=== PATIENT | male | born 1980 | race Caucasian/White ===

== ENCOUNTER 2019-10-05 19:13 | Inpatient (IN) | payer BC, OTHER ==
[~2019-10-05] VITALS: Ht 185.4 cm; Wt 95.9 kg
[2019-10-05] MEDS ORDERED: ALPR1TAB3 (19:50)
[2019-10-05] MEDS ORDERED: SERT50TA29 (19:50)
[2019-10-05 20:03] LABS: HEMATOCRIT 48.7 % (42.0-52.0); HEMOGLOBIN 16.7 g/dl (13.5-17.5); MEAN CORPUSCULAR HEMOGLOBIN 31.7 pg (27.0-33.0); MEAN CORPUSCULAR HGB CONC 34.3 g/dl (32.0-36.5); MEAN CORPUSCULAR VOLUME 92.6 fl (80.0-96.0); PLATELET COUNT, AUTOMATED 273 10^3/uL (150-450); RED BLOOD COUNT 5.26 10^6/uL (4.30-6.10); WHITE BLOOD COUNT 7.4 10^3/uL (4.0-10.0)
[2019-10-05 20:17] LABS: AMPHETAMINES LEVEL URINE NEGATIVE (NEGATIVE); BARBITURATES URINE NEGATIVE (NEGATIVE); BENZODIAZEPINES URINE POSITIVE (NEGATIVE); CANNABINOIDS URINE POSITIVE (NEGATIVE); COCAINE METABOLITE URINE NEGATIVE (NEGATIVE); METHADONE URINE NEGATIVE (NEGATIVE); OPIATES URINE NEGATIVE (NEGATIVE); PHENCYCLIDINE URINE NEGATIVE (NEGATIVE)
[2019-10-05 20:32] LABS: ACETAMINOPHEN LEVEL < 2.0 UG/ML (10.0-30.0); ALBUMIN 4.4 GM/DL (3.2-5.2); ALT/SGPT 36 U/L (12-78); BILIRUBIN,DIRECT 0.3 MG/DL (0.0-0.2); BILIRUBIN,TOTAL 1.1 MG/DL (0.2-1.0); BLOOD UREA NITROGEN 12 MG/DL (7-18); CALCIUM LEVEL 9.1 MG/DL (8.5-10.1); CARBON DIOXIDE LEVEL 23 MEQ/L (21-32); CHLORIDE LEVEL 105 MEQ/L (98-107); CREATININE FOR GFR 1.16 MG/DL (0.70-1.30); ETHYL ALCOHOL (ETHANOL) 0.125 % (0.000-0.010); GLOMERULAR FILTRATION RATE > 60.0 (>60); GLUCOSE, FASTING 88 MG/DL (70-100); POTASSIUM SERUM 3.6 MEQ/L (3.5-5.1); SALICYLATE LEVEL < 1.7 MG/DL (5.0-30.0); SODIUM LEVEL 138 MEQ/L (136-145); THYROID STIMULATING HORMONE 0.922 uIU/ML (0.358-3.740); TOTAL PROTEIN 8.1 GM/DL (6.4-8.2)
[2019-10-05] MEDS ORDERED: SERT50TA29 PO (22:42)
[2019-10-05] MEDS ORDERED: ALPR1TAB3 PO (22:42)
[2019-10-05] MEDS: THIAMINE 100 MG TAB PO SCH (23:29)
[2019-10-05] MEDS ORDERED: ALPRAZolam 0.5 MG TAB PO ONE (23:30)
[2019-10-05] MEDS ORDERED: ACETAMINOPHEN TAB 650MG DOSE (2X325MG) PO PRN (23:30)
[2019-10-05] MEDS ORDERED: OLANZapine 5 MG TAB PO PRN (23:30)
[2019-10-05] MEDS ORDERED: MOM 30ML SUSPENSION UDC PO PRN (23:30)
[2019-10-05] MEDS ORDERED: MAALOX 30 ML SUSP *UDC PO PRN (23:30)
[2019-10-05] MEDS ORDERED: LORazepam 2 MG TAB PO PRN (23:30)
[2019-10-05] MEDS ORDERED: traZODone 50 MG TAB PO PRN (23:30)
[2019-10-06 02:00] VITALS: BP 138/67
[2019-10-06] MEDS ORDERED: OLANZapine ORAL DISINTEGRATING TAB 5MG PO PRN (02:30)
[2019-10-06 06:55] VITALS: BP 138/67
[2019-10-06 07:48] VITALS: BP 162/93
[2019-10-06] MEDS ORDERED: FOLIC ACID 1 MG TAB PO SCH (09:00)
[2019-10-06] MEDS ORDERED: MULTIVITAMINS/MINERALS THERAP 1 TAB PO SCH (09:00)
[2019-10-06] MEDS: THIAMINE 100 MG TAB PO SCH (09:00)
--- NOTE | 2019-10-06 13:16 | MHDSPDOC ---
[facility] Discharge Summary Discharge Summary DATE OF ADMISSION: Oct 05, 2019 at 23:23 DATE OF DISCHARGE: DISCHARGE DIAGNOSES: 1. . 2. . REASON FOR ADMISSION: CONSULTANTS INVOLVED: TREATMENT AND PROGRESS ON THE UNIT : . 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 9 who was admitted on an involuntary basis last evening because of a concern by his family primarily that he was having self-destructive suicidal impulses Apparently Hadley had sent a text to his sister that was reviewed by his [id number] who is a state patrolman and was interpreted as to implicate suicidality so much so that his sister then called for a wellness check and the police were sent to the patient's home He is currently he has 2 children through a mail sons ages 11 and 9--- 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 and in fact is due to go to work tomorrow morning at 7:00 He is requesting discharge as soon as possible stating that this was a overreaction about the same time a stupid thing on his own part to have done--he regrets having that type of text He has no previous history of any psychiatric hospitalizations He currently takes Zoloft 50 mg per day does not really know whether or not it's helping him or not--he states that he said a couple of difficult things occur in his life over the last couple of weeks and that he was upset primarily over a recent breakup with a girlfriend He also acknowledges that he had a few beers last evening and he is an occasional marijuana user His presenting mental status was normal MENTAL STATUS EXAM Level of consciousness--patient was alert and oriented to time place person Appearance-normal posture, normal dress, no prominent physical abnormalities, alert, cooperative Behavior--like to good, no psychomotor agitation or retardation, no abnormal movements, no tremor Speech--normal rate and rhythm--normal volume Mood--euthymic Affect--normal range and consistent with mood--stable Thought processes--logical and linear , goal directed and coherent--no thought blocking or flight of ideas, no loose associations, no tangential thinking, no word salad, no thought blocking, no circumstantiality Thought content--no ideas of reference no auditory or visual hallucinations, no delusional thinking, no thoughts of derealization or depersonalization, no obsessive thinking, no expressed phobias, Cognition--patient was alert and able to focus-sustained appropriate mental attention-memory immediate and short-term memory intact-abstract thinking present, Insight---fair Judgment or the ability to anticipate consequences of behavior intact Patient denied any suicidal ideation or impulses Patient denied any homicidal impulses or ideation He has no history of any psychosis No family history of psychiatric illness No history of any prior psychiatric inpatient hospitalizations or suicidality He is requesting discharge and he is not a danger to himself or others at this point He stated he will followup with his psychologist to make an appointment for future counseling Admitting diagnosis adjustment disorder with depression Discharge diagnosis adjustment disorder with depression No consultations involved in hospitalization Aftercare was agreed upon Medications were reconciled A safety contract was constructed Emergency procedures were explained to the patient 45 minutes was spent with the patient and documentation Vital Signs/I&Os Vital Signs Date Time Temp Pulse Resp B/P (MAP) Pulse Ox O2 Delivery O2 Flow Rate FiO2 10/06/19 07:48 97.4 88 20 162/93 (116) 98 10/06/19 06:55 Room Air Laboratory Data Labs 24H Laboratory Tests 2 10/05/19 19:28: Urine Opiates Screen NEGATIVE, Urine Methadone Screen NEGATIVE, Urine Barbiturates Screen NEGATIVE, Urine Phencyclidine Screen NEGATIVE, Urine Amphetamines Screen NEGATIVE, Urine Benzodiazepines Screen POSITIVEH, Urine Cocaine Metabolite Screen NEGATIVE, Urine Cannabinoids Screen POSITIVEH 10/05/19 19:32: Nucleated Red Blood Cells % (auto) 0.0, Anion Gap 10, Glomerular Filtration Rate > 60.0, Calcium Level 9.1, Total Bilirubin 1.1H, Direct Bilirubin 0.3H, Aspartate Amino Transf (AST/SGOT) 19, Alanine Aminotransferase (ALT/SGPT) 36, Alkaline Phosphatase 61, Total Protein 8.1, Albumin 4.4, Albumin/Globulin Ratio 1.2, Thyroid Stimulating Hormone (TSH) 0.922, Salicylates Level < 1.7L, Acetaminophen Level < 2.0L, Ethyl Alcohol Level 0.125H CBC/BMP Laboratory Tests 10/05/19 19:32 Medications Scheduled Sertraline HCl (Sertraline HCl) 50 Mg Tablet, 50 MG PO DAILY, (Reported) Scheduled PRN Alprazolam (Alprazolam) 1 Mg Tablet, 1 MG PO QID PRN for ANXIETY, (Reported) Allergies Coded Allergies: No Known Allergies (Verified Allergy, Mild, 10/05/19) Horacio Álvarez MD Oct 06, 2019 13:15
--- NOTE | 2019-10-06 15:55 | HPEPDOC ---
[facility] Medical History & Physical Date of Admission Oct 06, 2019 History and Physical Chief complaint: Suicidal ideation History of present illness: This is the 39-year-old male with no significant medical history, comes to the psychiatric unit and we have been consulted for medical reasons. The patient said that he had multiple things go wrong and had suicidal ideation. States that he has a lot of stressors and suffers from depression, but does not take any medications. He currently has been admitted to the psychiatric facility and the management will be as per him. He denies any shortness of breath, any chest pain, any headache. He states that he does not have any intentions of hurting himself or anybody else at this point of time. Family history. Hypertension. Social history. Denies any drug abuse. Denies any recreational drug use. Past medical history none except for depression. Past surgical history none as per patient Review of systems. Pertinent positive findings as per HPI and is negative PHYSICAL EXAMINATION: General: The patient is awake, alert, oriented x3, sitting up in the bed in no apparent distress. Head and Neck Exam: Extraocular muscles intact. Pupils equally round and reactive to light. Mucous membranes are moist. Neck is supple. There is no jugular venous distention (JVD). Cardiovascular: S1 and S2, regular rate. No real edema Respiratory: Clear auscultation Abdomen: Soft. Positive bowel sounds. Nontender. No organomegaly. Genitourinary: Deferred Musculoskeletal: Clubbing of the fingernails, no cyanosis was noted. Central Nervous System ([employer] SAL[employer]IATE): No focal deficit. Power is 5/5 in all extremities. Medications reviewed Radiology reviewed Assessment and plan This is a 39-year-old male was been admitted to the psychiatric facility for suicide attempt. And we have been consulted for medical management. 1. Suicide ideation. Management is per psychiatry. 2. Depression: Management as per psychiatric Diet as per psychiatric Thank so much for consulting us on this patient Vital Signs Vital Signs Date Time Temp Pulse Resp B/P (MAP) Pulse Ox O2 Delivery O2 Flow Rate FiO2 10/06/19 07:48 97.4 88 20 162/93 (116) 98 10/06/19 06:55 Room Air Laboratory Data Labs 24H Laboratory Tests 2 10/05/19 19:28: Urine Opiates Screen NEGATIVE, Urine Methadone Screen NEGATIVE, Urine Barbiturates Screen NEGATIVE, Urine Phencyclidine Screen NEGATIVE, Urine Amphetamines Screen NEGATIVE, Urine Benzodiazepines Screen POSITIVEH, Urine Cocaine Metabolite Screen NEGATIVE, Urine Cannabinoids Screen POSITIVEH 10/05/19 19:32: Nucleated Red Blood Cells % (auto) 0.0, Anion Gap 10, Glomerular Filtration Rate > 60.0, Calcium Level 9.1, Total Bilirubin 1.1H, Direct Bilirubin 0.3H, Aspartate Amino Transf (AST/SGOT) 19, Alanine Aminotransferase (ALT/SGPT) 36, Alkaline Phosphatase 61, Total Protein 8.1, Albumin 4.4, Albumin/Globulin Ratio 1.2, Thyroid Stimulating Hormone (TSH) 0.922, Salicylates Level < 1.7L, Acetaminophen Level < 2.0L, Ethyl Alcohol Level 0.125H CBC/BMP Laboratory Tests 10/05/19 19:32 Home Medications No Active Prescriptions or Reported Meds Allergies Coded Allergies: No Known Allergies (Verified Allergy, Mild, 10/05/19) A-FIB/CHADSVASC A-FIB History Current/History of A-Fib/PAF?: No Current PO Anticoag Therapy: No RAYMOND MASON MD Oct 06, 2019 15:55
[2019-10-06] MEDS ORDERED: SERTRALINE HCL 50 MG TAB PO SCH (21:00)
== END 2019-10-06 16:15 | disposition home or self-care (01) | DRG 754 ==
LOC: M ED 19:13 → M ED INP 23:23 → M PSY 10-06 02:01
PROVIDERS: ADMIT Psychiatry & Neurology Psychiatry; ATTEND Psychiatry & Neurology Psychiatry
DX: F43.21 Adjustment disorder with depressed mood (principal); Z79.899 Other long term (current) drug therapy

== ENCOUNTER 2020-03-25 15:42 | Emergency (ER) | payer BC, OTHER ==
[~2020-03-25] VITALS: Ht 185.4 cm; Wt 95.5 kg
[~2020-03-25 15:42] MED LIST: ALPR1TAB3; ALPR1TAB3 PO; SERT50TA29; SERT50TA29 PO
[2020-03-25] MEDS ORDERED: ALPR1TAB3 PO ×2 (15:57→21:37)
[2020-03-25 16:56] LABS: HEMATOCRIT 48.7 % (42.0-52.0); HEMOGLOBIN 16.2 g/dl (13.5-17.5); MEAN CORPUSCULAR HGB CONC 33.3 g/dl (32.0-36.5); MEAN CORPUSCULAR VOLUME 93.1 fl (80.0-96.0); PLATELET COUNT, AUTOMATED 261 10^3/uL (150-450); RED BLOOD COUNT 5.23 10^6/uL (4.30-6.10); WHITE BLOOD COUNT 5.7 10^3/uL (4.0-10.0)
[2020-03-25 17:06] LABS: AMPHETAMINES LEVEL URINE NEGATIVE (NEGATIVE); BARBITURATES URINE NEGATIVE (NEGATIVE); BENZODIAZEPINES URINE NEGATIVE (NEGATIVE); CANNABINOIDS URINE NEGATIVE (NEGATIVE); COCAINE METABOLITE URINE NEGATIVE (NEGATIVE); METHADONE URINE NEGATIVE (NEGATIVE); OPIATES URINE NEGATIVE (NEGATIVE); PHENCYCLIDINE URINE NEGATIVE (NEGATIVE)
[2020-03-25 17:22] LABS: ACETAMINOPHEN LEVEL < 2.0 UG/ML (10.0-30.0); ALBUMIN 4.2 GM/DL (3.2-5.2); ALT/SGPT 27 U/L (12-78); BILIRUBIN,DIRECT 0.2 MG/DL (0.0-0.2); BILIRUBIN,TOTAL 0.8 MG/DL (0.2-1.0); BLOOD UREA NITROGEN 13 MG/DL (7-18); CALCIUM LEVEL 9.2 MG/DL (8.5-10.1); CARBON DIOXIDE LEVEL 29 MEQ/L (21-32); CHLORIDE LEVEL 103 MEQ/L (98-107); CREATININE FOR GFR 1.13 MG/DL (0.70-1.30); ETHYL ALCOHOL (ETHANOL) 0.201 % (0.000-0.010); GLOMERULAR FILTRATION RATE > 60.0 (>60); GLUCOSE, FASTING 102 MG/DL (70-100); POTASSIUM SERUM 4.1 MEQ/L (3.5-5.1); SALICYLATE LEVEL < 1.7 MG/DL (5.0-30.0); SODIUM LEVEL 139 MEQ/L (136-145); TOTAL PROTEIN 7.8 GM/DL (6.4-8.2)
[2020-03-25 22:47] VITALS: BP 156/94
== END 2020-03-25 22:49 | disposition home or self-care (01) ==
LOC: M ED 15:42
DX: F10.129 Alcohol abuse with intoxication, unspecified (principal)
CPT/HCPCS: 80048; 80076; 80307; 84443; 85027; 99284; G0480

== ENCOUNTER → 2024-08-11 | Outpatient (REF) | payer BC, OTHER | LOC: M SFHCDERM 12:43 | PROVIDERS: ATTEND Physician Assistant | DX: B00.9 Herpesviral infection, unspecified (principal) ==

== ENCOUNTER → 2025-02-16 | Outpatient (REF) | payer BC, OTHER | LOC: M SFHCDERM 17:11 | PROVIDERS: ATTEND Physician Assistant | DX: L01.00 Impetigo, unspecified (principal) ==